=== PATIENT | female | born 1970 | race Caucasian/White ===

== ENCOUNTER 2017-06-13 11:31 | Day surgery (SDC) | payer OTHER ==
[~2017-06-13 11:31] MED LIST: RINGER'S SOLUTION,LACTATED 1,000 ML IV PRN
[2017-06-13] MEDS: RINGER'S SOLUTION,LACTATED 1,000 ML IV ONE (11:50)
--- NOTE | 2017-06-13 13:14 | OR ---
Operative Report - Dictated Report Narrative: Date: 06/13/2017 Preop diagnosis: Change in bowel habits Postop diagnosis: Possible extrinsic compression of the cecum Procedure: Total colonoscopy with random cold forceps biopsies at 60cm and 30cm Description After informed consent and appropriate sedation the patient was placed in the left lateral decubitus position. External inspection of the anus was unremarkable. Flexible fiberoptic video colonoscope was introduced and advanced under direct vision without difficulty to the cecum. The usual landmarks were identified. Preparation was excellent and excellent views were obtained. Findings were of a possible extrinsic compression of the cecum that did not appear to be a loop of the scope. Intraoperative consultation was sought with Dr. Lesly Claudio. A biopsy forceps was used to push on this extrinsic compression with a possible positive pillow sign. Advancing the scope and withdrawing the scope did not appear to alter the appearance of this compression. The remainder of the colon and rectum were normal. Random biopsies at 60 cm and 30 cm were performed with cold forceps. The mucosal color , vasculature, and texture were normal throughout. No suspicious masses of the colon were seen however there is the outstanding question of this extrinsic compression of the cecum. The patient tolerated the procedure well without apparent complications and was discharged from the endoscopy suite in stable condition. A CT of the abdomen and pelvis has been ordered.
[2017-06-13 13:37] VITALS: BP 139/85
== END 2017-06-13 11:32 | disposition home or self-care (01) ==
LOC: AMB 11:31
PROVIDERS: ATTEND Specialist
PROC: 0DBE8ZX Excision of Large Intestine, Via Natural or Artificial Opening Endoscopic, Diagnostic (ICD-10-PCS; principal; 2017-06-13)
DX: R19.4 Change in bowel habit (principal); R19.7 Diarrhea, unspecified